=== PATIENT | female | born 1970 | race Caucasian/White ===

== ENCOUNTER 2017-09-01 00:19 | Emergency (ER) | payer MEDICARE, BC ==
[2017-09-01] MEDS: ONDANSETRON 4 MG INJ IV ×2 (01:24→04:29)
[2017-09-01] MEDS: morphine 10 MG INJ IV (01:24)
[2017-09-01] MEDS: SOD CHLORIDE 0.9% 1,000 ML IV (01:24)
[2017-09-01] MEDS: KETOROLAC 30 MG INJ IV (03:23)
[2017-09-01] MEDS: HYDROmorphONE 0.5 MG/0.5 ML SYG IV (04:20)
[2017-09-01] MEDS: SILVER SULFADIAZINE 1% 25 GM CR TOP (04:24)
[2017-09-01] MEDS: OXYCODONE/ACETAMINOPHEN (5/325) TAB PO (04:30)
[2017-09-01] MEDS: CLINDAMYCIN 600 MG/D5W (PMX) 50 ML IVPB (05:16)
== END 2017-09-01 06:38 | disposition home or self-care (01) ==
LOC: E/R 00:19
DX: T21.21XA Burn of second degree of chest wall, initial encounter (principal); I10 Essential (primary) hypertension; E11.9 Type 2 diabetes mellitus without complications; X10.0XXA Contact with hot drinks, initial encounter; Y92.9 Unspecified place or not applicable; Z79.4 Long term (current) use of insulin
CPT/HCPCS: 16020; 36415; 96374; 96375; 96376; 99284-25